=== PATIENT | female | born 1985 | race Caucasian/White ===

== ENCOUNTER 2016-06-11 22:49 | Emergency (ER) | payer MEDICARE, OTHER ==
[~2016-06-11] VITALS: Ht 45.7 cm; Wt 147.3 kg
[~2016-06-11 22:49] MED LIST: ADIPEX-P37.5 MG PO; BENADRYL50 MG PO; CELEXA40 MG PO; DEPO-PROVER150 MG/M1 IM; FLEXERIL 1010 MG/TAB PO; MACROBID100 MG PO; NEURONTIN600 MG/TAB PO; PERCOCET 325 MG1 TA2 PO; PERCOCET 325 MG1 TAB PO; ROXICODONE 55 MG/TAB PO; TOPAMAX50 MG PO
[2016-06-11 22:59] VITALS: TEMP 98.9
[2016-06-11] MEDS ORDERED: AMITRIPTYLINE H10 M1 PO (23:05)
[2016-06-12 01:50] VITALS: BP 141/80; PULSE 90
[2016-06-12] MEDS ORDERED: ROXICODONE 55 MG/TAB PO (10:14)
[2016-06-12] MEDS ORDERED: MOTRIN 800800 MG/TAB PO (12:46)
== END 2016-06-12 01:50 | disposition home or self-care (01) ==
LOC: COL.ER 22:49
DX: M25.561 Pain in right knee (principal)
CPT/HCPCS: J1170; J1885; J2405; J2550

== ENCOUNTER 2016-06-12 10:05 | Emergency (ER) | payer MEDICARE, OTHER ==
[~2016-06-12] VITALS: Ht 170.2 cm; Wt 147.3 kg
[~2016-06-12 10:05] MED LIST changes: +AMITRIPTYLINE H10 M1 PO
[2016-06-12 10:07] VITALS: BP 147/89; TEMP 98.9
[2016-06-12] MEDS ORDERED: ROXICODONE 55 MG/TAB PO (10:14)
[2016-06-12 11:28] LABS: SYNOVIAL FLUID APPEARANCE HAZY; SYNOVIAL FLUID COLOR OTHER
[2016-06-12 11:31] LABS: SYNOVIAL FL. MONONUCLEAR 8.3 % (0-75); SYNOVIAL FL. POLYMORPHONUCLEAR 91.7 % (0-25)
[2016-06-12 11:41] LABS: SYNOVIAL FLUID WBC 37600 /mm3 (200-600)
[2016-06-12 11:42] LABS: ADJUSTED CALCIUM 9.4 mg/dL (8.4-10.2); ALBUMIN 4.3 gm/dL (3.5-5.0); C-REACTIVE PROTEIN 3.8 mg/dL (0.0-0.9); CALCIUM 9.6 mg/dL (8.4-10.2); CREATININE, serum 0.66 mg/dL (0.52-1.25); POTASSIUM 3.3 mmol/L (3.4-5.0); TOTAL PROTEIN 7.9 gm/dL (6.4-8.2)
[2016-06-12 11:45] LABS: BASO % 0.2 % (0.0-2.0); EOS # 0.1 (0.0-0.7); EOS % 1.1 % (0-4.0); GRAN # 7.9 (1.4-6.5); GRAN % 67.9 % (42.2-75.2); HEMATOCRIT 38.3 % (37.0-47.0); LYMPH # 2.7 (1.2-3.4); LYMPH % 22.9 % (20.0-51.0); MEAN CELL VOLUME 81 fl (80.0-100.0); MEAN CORPUSCULAR HEMOGLOBIN 28 pg (27.0-31.0); MEAN CORPUSCULAR HGB CONC 34 g/dl (33.0-37.0); MEAN PLATELET VOLUME 10.1 fl (7.4-10.4); MONO # 0.9 (0.1-0.6); MONO % 7.5 % (1.7-9.3); PLATELET COUNT 209 K/mm3 (130-400); RED BLOOD COUNT 4.72 M/mm3 (4.10-5.30); REDCELL DISTRIBUTION WIDTH-CV 12.6 % (11.5-14.5); WHITE BLOOD COUNT 11.7 K/mm3 (4.8-10.8)
[2016-06-12] MEDS ORDERED: MOTRIN 800800 MG/TAB PO (12:46)
[2016-06-12 13:00] VITALS: PULSE 103
[2016-06-15 08:41] LABS: SYN APPEARANCE Cloudy (()); SYN COLOR Amber (())
== END 2016-06-12 13:01 | disposition home or self-care (01) ==
LOC: COL.ER 10:05
PROVIDERS: Emergency Medicine
DX: M13.861 Other specified arthritis, right knee (principal)
CPT/HCPCS: J1170; J1885; J2405

== ENCOUNTER 2016-10-23 22:14 | Emergency (ER) | payer MEDICARE, OTHER ==
[~2016-10-23] VITALS: Ht 170.2 cm; Wt 145.5 kg
[~2016-10-23 22:14] MED LIST changes: +MOTRIN 800800 MG/TAB PO
[2016-10-23 22:19] VITALS: TEMP 98
[2016-10-23] MEDS ORDERED: HCTZ 25MG TAB25 MG PO (22:22)
[2016-10-23] MEDS ORDERED: PREDNISONE20 MG PO (22:31)
[2016-10-23] MEDS ORDERED: DILAUDID 4MG TAB4 MG PO (23:26)
[2016-10-23 23:45] LABS: BASO # 0.1 (0.0-0.2); BASO % 0.3 % (0.0-2.0); EOS # 0.2 (0.0-0.7); EOS % 1.6 % (0-4.0); GRAN # 11.9 (1.4-6.5); GRAN % 80.8 % (42.2-75.2); HEMOGLOBIN 13.1 g/dl (12.5-16.0); LYMPH # 1.6 (1.2-3.4); LYMPH % 10.5 % (20.0-51.0); MEAN CELL VOLUME 81 fl (80.0-100.0); MEAN CORPUSCULAR HEMOGLOBIN 27 pg (27.0-31.0); MEAN CORPUSCULAR HGB CONC 34 g/dl (33.0-37.0); MEAN PLATELET VOLUME 10.2 fl (7.4-10.4); MONO # 0.8 (0.1-0.6); MONO % 5.1 % (1.7-9.3); PLATELET COUNT 222 K/mm3 (130-400); RED BLOOD COUNT 4.84 M/mm3 (4.10-5.30); REDCELL DISTRIBUTION WIDTH-CV 13.4 % (11.5-14.5); WHITE BLOOD COUNT 14.8 K/mm3 (4.8-10.8)
[2016-10-24 00:36] LABS: ERYTHROCYTE SEDIMENTATION RATE 46 mm/hr (0-20)
[2016-10-24 01:36] VITALS: BP 110/64; PULSE 108
== END 2016-10-24 01:37 | disposition home or self-care (01) ==
LOC: COL.ER 22:14
PROVIDERS: Emergency Medicine
DX: M23.91 Unspecified internal derangement of right knee (principal); Z48.01 Encounter for change or removal of surgical wound dressing; Z79.891 Long term (current) use of opiate analgesic
CPT/HCPCS: J1100; J1170; J1885; J2405; J7030

== ENCOUNTER → 2016-12-02 | Outpatient (CLI) | payer MEDICARE ==
[~2016-12-02] MED LIST changes: +DILAUDID 4MG TAB4 MG PO; +HCTZ 25MG TAB25 MG PO; +PREDNISONE20 MG PO
[2016-12-02 18:24] LABS: ADJUSTED CALCIUM 9.3 mg/dL (8.4-10.2); BILIRUBIN,TOTAL 0.2 mg/dL (0.0-1.0); CALCIUM 9.3 mg/dL (8.4-10.2); CREATININE, serum 0.62 mg/dL (0.52-1.25); POTASSIUM 3.4 mmol/L (3.4-5.0); TOTAL PROTEIN 7.4 gm/dL (6.4-8.2)
== END ==
LOC: ZCOL.LAB 17:28
PROVIDERS: Family Medicine
DX: T14.90 Injury, unspecified (principal); B99.9 Unspecified infectious disease

== ENCOUNTER → 2016-12-22 | Outpatient (CLI) | payer MEDICARE, OTHER | LOC: COL.RAD 08:42 | DX: M25.461 Effusion, right knee (principal); M17.11 Unilateral primary osteoarthritis, right knee; M94.8X6 Other specified disorders of cartilage, lower leg ==

== ENCOUNTER 2017-01-28 07:28 | Emergency (ER) | payer MEDICARE ==
[~2017-01-28] VITALS: Ht 170.2 cm; Wt 146.4 kg
[2017-01-28 07:30] VITALS: TEMP 99.5
[2017-01-28] MEDS ORDERED: ZANAFLEX 4MG TAB4 MG PO (07:50)
[2017-01-28] MEDS ORDERED: ANTIVERT 25MG25 MG PO (07:51)
[2017-01-28] MEDS ORDERED: DAZIDOX10 MG PO (07:51)
[2017-01-28] MEDS ORDERED: ZOFRAN ODT4 MG PO (07:52)
[2017-01-28] MEDS ORDERED: SINGULAIR 110 MG/TAB PO (07:52)
[2017-01-28 08:59] LABS: PH 5 (5-8); SQUAMOUS EPITHELIAL 0-2 /hpf; URINE APPEARANCE Hazy; URINE BACTERIA Rare /hpf; URINE BILIRUBIN Negative (NEGATIVE); URINE BLOOD Negative (NEGATIVE); URINE COLOR Yellow; URINE GLUCOSE Negative (NEGATIVE); URINE KETONE Negative (NEGATIVE); URINE RBC 0-2 /hpf
[2017-01-28 09:03] LABS: MEAN CELL VOLUME 77 fl (80.0-100.0); MEAN CORPUSCULAR HEMOGLOBIN 26 pg (27.0-31.0); MEAN CORPUSCULAR HGB CONC 33 g/dl (33.0-37.0); MEAN PLATELET VOLUME 10.9 fl (7.4-10.4); PLATELET COUNT 128 K/mm3 (130-400); RED BLOOD COUNT 4.65 M/mm3 (4.10-5.30); WHITE BLOOD COUNT 6.4 K/mm3 (4.8-10.8)
[2017-01-28 09:05] LABS: ADD PATHOLOGY DIFF REVIEW NO
[2017-01-28 09:08] LABS: ADJUSTED CALCIUM 8.9 mg/dL (8.4-10.2); BILIRUBIN,TOTAL 0.9 mg/dL (0.0-1.0); CALCIUM 8.9 mg/dL (8.4-10.2); CREATININE, serum 0.62 mg/dL (0.52-1.25); POTASSIUM 3.3 mmol/L (3.4-5.0); TOTAL PROTEIN 7.1 gm/dL (6.4-8.2)
[2017-01-28 10:10] LABS: BAND 15 % (0-10); NEUTROPHILS 31 % (42.0-75.2); TOTAL CELLS COUNTED 100
[2017-01-28 10:11] LABS: PLATELET ESTIMATE DECREASED (NORMAL)
[2017-01-28 10:12] LABS: MICROCYTOSIS 1+
[2017-01-28] MEDS ORDERED: PHENERGAN 25 TA25 MG PO (10:18)
[2017-01-28 10:35] VITALS: BP 125/79; PULSE 95
== END 2017-01-28 10:35 | disposition home or self-care (01) ==
LOC: COL.ER 07:28
PROVIDERS: Emergency Medicine
DX: R42 Dizziness and giddiness (principal); R51 Headache; I10 Essential (primary) hypertension; G89.29 Other chronic pain; M54.9 Dorsalgia, unspecified; Z87.891 Personal history of nicotine dependence; Z98.890 Other specified postprocedural states
CPT/HCPCS: J1170; J2405; J3010; J7030

== ENCOUNTER → 2017-02-04 | Outpatient (CLI) | payer MEDICARE ==
[~2017-02-04] MED LIST changes: +ANTIVERT 25MG25 MG PO; +DAZIDOX10 MG PO; +PHENERGAN 25 TA25 MG PO; +SINGULAIR 110 MG/TAB PO; +ZANAFLEX 4MG TAB4 MG PO; +ZOFRAN ODT4 MG PO
== END ==
LOC: COL.RAD 10:14
DX: R51 Headache (principal); R42 Dizziness and giddiness; R07.9 Chest pain, unspecified
CPT/HCPCS: A9585

== ENCOUNTER → 2017-02-08 | Outpatient (CLI) | payer MEDICARE | LOC: COL.RAD 09:45 | DX: K80.20 Calculus of gallbladder without cholecystitis without obstruction (principal); K76.0 Fatty (change of) liver, not elsewhere classified; R16.0 Hepatomegaly, not elsewhere classified ==

== ENCOUNTER 2017-02-25 09:35 | Day surgery (SDC) | payer MEDICARE ==
[~2017-02-25] VITALS: Ht 171.4 cm; Wt 147.4 kg
[2017-02-25 10:41] VITALS: BP 131/75; PULSE 110; TEMP 97.6
[2017-02-25] MEDS ORDERED: WELLBUTRIN XL150 MG PO (11:10)
[2017-02-25] MEDS ORDERED: ZANTAC 150MG T150 MG PO (11:10)
[2017-02-25] MEDS ORDERED: ATARAX 25MG25 MG/TAB PO (11:11)
[2017-02-25 14:35] VITALS: BP 120/72; PULSE 88
[2017-02-25 14:50] VITALS: BP 110/73; PULSE 84
[2017-02-25 15:05] VITALS: BP 99/59; PULSE 84
[2017-02-25 15:20] VITALS: BP 116/73; PULSE 90
[2017-02-25 15:35] VITALS: BP 124/68; PULSE 82; TEMP 97.5
== END 2017-02-25 16:07 | disposition home or self-care (01) ==
LOC: SDCO 09:35
DX: K80.10 Calculus of gallbladder with chronic cholecystitis without obstruction (principal); G90.522 Complex regional pain syndrome I of left lower limb; E66.01 Morbid (severe) obesity due to excess calories; Z68.43 Body mass index [BMI] 50.0-59.9, adult; I10 Essential (primary) hypertension; Z87.891 Personal history of nicotine dependence; G89.29 Other chronic pain; M54.9 Dorsalgia, unspecified; R20.2 Paresthesia of skin; F32.9 Major depressive disorder, single episode, unspecified; F41.9 Anxiety disorder, unspecified
CPT/HCPCS: J1170; J2765; J7120

== ENCOUNTER 2017-05-03 14:45 | Outpatient (RCR) | payer MEDICARE ==
[~2017-05-03 14:45] MED LIST changes: +ATARAX 25MG25 MG/TAB PO; +WELLBUTRIN XL150 MG PO; +ZANTAC 150MG T150 MG PO
== END 2017-05-03 15:33 | disposition home or self-care (01) ==
LOC: WSPT 14:45
DX: M25.561 Pain in right knee (principal)
CPT/HCPCS: G8978-GP; G8979-GP

== ENCOUNTER 2017-05-05 09:20 | Day surgery (SDC) | payer MEDICARE, OTHER ==
[~2017-05-05] VITALS: Ht 171.4 cm; Wt 147.8 kg
[2017-05-05 09:53] VITALS: BP 144/92; PULSE 91; TEMP 98.1
[2017-05-05] MEDS ORDERED: TOPAMAX50 MG PO (10:41)
[2017-05-05] MEDS ORDERED: ROXICODONE 55 MG/TAB PO ×2 (10:41→15:14)
[2017-05-05] MEDS ORDERED: CELEXA40 MG PO (10:42)
[2017-05-05] MEDS ORDERED: NEURONTIN600 MG/TAB PO (10:45)
[2017-05-05] MEDS ORDERED: AMITRIPTYLINE H25 M1 PO (10:45)
[2017-05-05 14:06] VITALS: TEMP 97.4
[2017-05-05 14:40] VITALS: BP 96/53; PULSE 97
[2017-05-05 14:55] VITALS: BP 102/58; PULSE 82
[2017-05-05 15:10] VITALS: BP 110/59; PULSE 87
[2017-05-05] MEDS ORDERED: PHENERGAN 25 TA25 MG PO (15:14)
[2017-05-05] MEDS ORDERED: CEPHALEXIN500 M1 PO (15:15)
[2017-05-05 15:25] VITALS: BP 103/54; PULSE 81
== END 2017-05-05 15:41 | disposition home or self-care (01) ==
LOC: SDCO 09:20
DX: M65.861 Other synovitis and tenosynovitis, right lower leg (principal); M17.11 Unilateral primary osteoarthritis, right knee; M94.261 Chondromalacia, right knee; E66.01 Morbid (severe) obesity due to excess calories; Z88.5 Allergy status to narcotic agent; Z88.2 Allergy status to sulfonamides; Z91.018 Allergy to other foods; F32.9 Major depressive disorder, single episode, unspecified; M25.461 Effusion, right knee; Z68.42 Body mass index [BMI] 45.0-49.9, adult
CPT/HCPCS: J0171; J0690; J1100; J1170; J1885; J2175; J2405; J2704; J2765; J3010; J7120

== ENCOUNTER → 2017-08-11 | Outpatient (CLI) | payer MEDICARE ==
[~2017-08-11] MED LIST changes: +AMITRIPTYLINE H25 M1 PO; +CEPHALEXIN500 M1 PO
== END ==
LOC: MC.RAD 08:09
DX: N63.24 Unspecified lump in the left breast, lower inner quadrant (principal)

== ENCOUNTER → 2017-10-17 | Outpatient (CLI) | payer MEDICARE ==
[~2017-10-17] VITALS: Ht 172.7 cm; Wt 60.5 kg
[~2017-10-17] MED LIST changes: +MEDROL 4MG DOSPA4 MG PO; +PRILOTC
[2017-10-17 12:23] VITALS: BP 131/60; PULSE 89
[2017-10-17 13:05] VITALS: BP 126/79; PULSE 90
[2017-10-17 13:15] VITALS: BP 130/75; PULSE 80
[2017-10-17 13:30] VITALS: BP 117/73; PULSE 90
== END ==
LOC: COL.RAD 11:38
DX: M51.26 Other intervertebral disc displacement, lumbar region (principal); Z98.890 Other specified postprocedural states
CPT/HCPCS: A9585; G9654; J2704; J3010; J7120

== ENCOUNTER 2017-12-16 21:33 | Observation (INO) | payer MEDICARE ==
[~2017-12-16] VITALS: Ht 170.2 cm; Wt 127.4 kg
[2017-12-16 22:00] LABS: BASO % 0.1 % (0.0-2.0); EOS # 0.2 (0.0-0.7); EOS % 1.8 % (0-4.0); GRAN # 6.1 (1.4-6.5); GRAN % 58.6 % (42.2-75.2); HEMATOCRIT 38.3 % (37.0-47.0); HEMOGLOBIN 13.1 g/dl (12.5-16.0); LYMPH # 3.4 (1.2-3.4); LYMPH % 32.1 % (20.0-51.0); MEAN CELL VOLUME 82 fl (80.0-100.0); MEAN CORPUSCULAR HEMOGLOBIN 28 pg (27.0-31.0); MEAN CORPUSCULAR HGB CONC 34 g/dl (33.0-37.0); MEAN PLATELET VOLUME 10.6 fl (7.4-10.4); MONO # 0.7 (0.1-0.6); PLATELET COUNT 200 K/mm3 (130-400); RED BLOOD COUNT 4.68 M/mm3 (4.10-5.30); REDCELL DISTRIBUTION WIDTH-CV 12.6 % (11.5-14.5)
[2017-12-16 22:05] LABS: PROTHROMBIN TIME 11.4 SECONDS (9.7-12.8)
[2017-12-16] MEDS ORDERED: AMITRIPTYLINE H25 M1 PO (22:05)
[2017-12-16] MEDS ORDERED: CELEXA40 MG PO (22:06)
[2017-12-16 22:07] LABS: PARTIAL THROMBOPLASTIN TIME 40.6 SECONDS (26.0-37.0)
[2017-12-16 22:11] LABS: ALANINE AMINOTRANSFERASE 61 U/L (9-52); ALBUMIN 4.3 gm/dL (3.5-5.0); ALKALINE PHOSPHATASE 57 U/L (50-136); ANION GAP 13 mmol/L (7-16); AST,SGOT 128 U/L (15-37); BILIRUBIN,TOTAL 0.4 mg/dL (0.0-1.0); BLOOD UREA NITROGEN 8 mg/dL (7-17); CALCIUM 9.2 mg/dL (8.4-10.2); CARBON DIOXIDE 25 mmol/L (22-30); CHLORIDE 100 mmol/L (98-107); CREATININE, serum 0.68 mg/dL (0.52-1.25); GLUCOSE 126 mg/dL (74-106); POTASSIUM 3.1 mmol/L (3.4-5.0); SODIUM 138 mmol/L (137-145); TOTAL PROTEIN 7.6 gm/dL (6.4-8.2)
[2017-12-16 22:22] LABS: TROPONIN-I < 0.012 ng/mL (0.000-0.034)
[2017-12-16] MEDS ORDERED: BUSPIRONE HCL7.5 MG PO (22:36)
[2017-12-16] MEDS ORDERED: CALCIUM 600/VIT1 CAP PO (22:36)
[2017-12-16] MEDS ORDERED: BIOTIN10000 MC1 PO (22:37)
[2017-12-16] MEDS ORDERED: ZANTAC 150MG T150 MG PO (22:38)
[2017-12-16] MEDS ORDERED: PRILOTC PO (22:40)
[2017-12-16] MEDS ORDERED: HCTZ 25MG TAB25 MG PO (22:41)
[2017-12-16] MEDS ORDERED: OXYCONTIN 10MG10 MG PO (22:46)
[2017-12-16] MEDS ORDERED: B-12 500 MCG PO (22:47)
[2017-12-16] MEDS ORDERED: LYSINE1000 MG PO (22:47)
[2017-12-17 00:50] VITALS: BP 127/76; PULSE 86; TEMP 98.6
[2017-12-17 02:00] LABS: COLLECTION METHOD CLEAN CATCH
[2017-12-17 02:06] LABS: PH 6 (5-8); SQUAMOUS EPITHELIAL 0-2 /hpf; URINE APPEARANCE Clear; URINE BACTERIA None Seen /hpf; URINE BILIRUBIN Negative (NEGATIVE); URINE BLOOD Negative (NEGATIVE); URINE COLOR Yellow; URINE GLUCOSE Negative (NEGATIVE); URINE KETONE Negative (NEGATIVE); URINE LEUKOCYTE ESTERASE Negative (NEGATIVE); URINE NITRATE Negative (NEGATIVE); URINE PROTEIN(semi-quant) Negative (NEGATIVE); URINE RBC None Seen /hpf; URINE UROBILINOGEN Negative (NEGATIVE)
[2017-12-17 04:51] VITALS: BP 110/62; PULSE 83; TEMP 98.5
[2017-12-17 08:39] VITALS: BP 109/63; PULSE 79; TEMP 98.1
[2017-12-17 09:08] LABS: BASO % 0.1 % (0.0-2.0); EOS # 0.2 (0.0-0.7); EOS % 2.2 % (0-4.0); GRAN # 4.1 (1.4-6.5); GRAN % 48.9 % (42.2-75.2); LYMPH # 3.5 (1.2-3.4); LYMPH % 41.2 % (20.0-51.0); MEAN CELL VOLUME 83 fl (80.0-100.0); MEAN CORPUSCULAR HEMOGLOBIN 28 pg (27.0-31.0); MEAN CORPUSCULAR HGB CONC 34 g/dl (33.0-37.0); MEAN PLATELET VOLUME 10.9 fl (7.4-10.4); MONO # 0.6 (0.1-0.6); MONO % 7.4 % (1.7-9.3); PLATELET COUNT 188 K/mm3 (130-400); RED BLOOD COUNT 4.26 M/mm3 (4.10-5.30); REDCELL DISTRIBUTION WIDTH-CV 12.8 % (11.5-14.5)
[2017-12-17 09:16] LABS: HEMATOCRIT 35.3 % (37.0-47.0)
[2017-12-17 09:27] LABS: ALANINE AMINOTRANSFERASE 59 U/L (9-52); ALBUMIN 3.8 gm/dL (3.5-5.0); ALKALINE PHOSPHATASE 46 U/L (50-136); ANION GAP 11 mmol/L (7-16); AST,SGOT 69 U/L (15-37); BILIRUBIN,TOTAL 0.5 mg/dL (0.0-1.0); BLOOD UREA NITROGEN 6 mg/dL (7-17); CALCIUM 8.9 mg/dL (8.4-10.2); CARBON DIOXIDE 26 mmol/L (22-30); CHLORIDE 103 mmol/L (98-107); CREATININE, serum 0.66 mg/dL (0.52-1.25); GLUCOSE 73 mg/dL (74-106); POTASSIUM 3.6 mmol/L (3.4-5.0); SODIUM 139 mmol/L (137-145)
[2017-12-17 09:49] LABS: TROPONIN-I < 0.012 ng/mL (0.000-0.034)
[2017-12-17 10:33] VITALS: BP 109/63; PULSE 79
== END 2017-12-17 13:00 | disposition home or self-care (01) ==
LOC: COL.ER 21:33 → SURG 23:00
PROVIDERS: Emergency Medicine; Family Medicine; Nurse Practitioner
DX: G89.4 Chronic pain syndrome (principal); R10.13 Epigastric pain; F32.9 Major depressive disorder, single episode, unspecified; F10.20 Alcohol dependence, uncomplicated; I10 Essential (primary) hypertension; E87.6 Hypokalemia; R07.89 Other chest pain; M25.512 Pain in left shoulder; M79.632 Pain in left forearm; M79.642 Pain in left hand; E66.9 Obesity, unspecified; K21.9 Gastro-esophageal reflux disease without esophagitis; K76.0 Fatty (change of) liver, not elsewhere classified; Z90.49 Acquired absence of other specified parts of digestive tract; Z87.891 Personal history of nicotine dependence; Z88.1 Allergy status to other antibiotic agents; Z88.2 Allergy status to sulfonamides; Z91.018 Allergy to other foods; Z80.3 Family history of malignant neoplasm of breast; Z82.3 Family history of stroke; Z80.0 Family history of malignant neoplasm of digestive organs; Z83.3 Family history of diabetes mellitus; Z82.49 Family history of ischemic heart disease and other diseases of the circulatory system
CPT/HCPCS: G0378; J1170; J2060; J2405; J7120; Q9967

== ENCOUNTER 2018-04-08 15:28 | Emergency (ER) | payer MEDICARE ==
[~2018-04-08] VITALS: Ht 170.2 cm; Wt 136.4 kg
[~2018-04-08 15:28] MED LIST changes: +B-12 500 MCG PO; +BIOTIN10000 MC1 PO; +BUSPIRONE HCL7.5 MG PO; +CALCIUM 600/VIT1 CAP PO; +LYSINE1000 MG PO; +OXYCONTIN 10MG10 MG PO; +PRILOTC PO
[2018-04-08 15:30] VITALS: TEMP 97.7
[2018-04-08 16:23] LABS: BASO % 0.1 % (0.0-2.0); EOS # 0.4 (0.0-0.7); EOS % 4.5 % (0-4.0); GRAN # 4.8 (1.4-6.5); GRAN % 53.4 % (42.2-75.2); HEMATOCRIT 37.7 % (37.0-47.0); HEMOGLOBIN 12.8 g/dl (12.5-16.0); LYMPH # 3.2 (1.2-3.4); LYMPH % 35.3 % (20.0-51.0); MEAN CELL VOLUME 85 fl (80.0-100.0); MEAN CORPUSCULAR HEMOGLOBIN 29 pg (27.0-31.0); MEAN CORPUSCULAR HGB CONC 34 g/dl (33.0-37.0); MONO # 0.6 (0.1-0.6); MONO % 6.5 % (1.7-9.3); PLATELET COUNT 185 K/mm3 (130-400); RED BLOOD COUNT 4.46 M/mm3 (4.10-5.30); REDCELL DISTRIBUTION WIDTH-CV 12.5 % (11.5-14.5)
[2018-04-08 16:34] LABS: BILIRUBIN,TOTAL 0.4 mg/dL (0.0-1.0); CREATININE, serum 0.66 mg/dL (0.52-1.25); POTASSIUM 4.1 mmol/L (3.4-5.0); TOTAL PROTEIN 7.2 gm/dL (6.4-8.2)
[2018-04-08 17:15] LABS: COLLECTION METHOD CLEAN CATCH
[2018-04-08] MEDS ORDERED: CYMBALTA 60MG60 MG PO (17:41)
[2018-04-08] MEDS ORDERED: NATURAL E400 IU PO (17:52)
[2018-04-08] MEDS ORDERED: TURMERIC500 MG PO (17:52)
[2018-04-08] MEDS ORDERED: FLAXSEED OIL1000 MG PO (17:53)
[2018-04-08] MEDS ORDERED: MASON NATURAL500 MG PO (17:53)
[2018-04-08 17:56] LABS: MUCOUS Present /lpf; PH 5 (5-8); SQUAMOUS EPITHELIAL 0-2 /hpf; URINE APPEARANCE Clear; URINE BACTERIA None Seen /hpf; URINE BILIRUBIN Negative (NEGATIVE); URINE BLOOD Negative (NEGATIVE); URINE COLOR Yellow; URINE GLUCOSE Negative (NEGATIVE); URINE KETONE Negative (NEGATIVE); URINE LEUKOCYTE ESTERASE Trace (NEGATIVE); URINE NITRATE Negative (NEGATIVE); URINE PROTEIN(semi-quant) Negative (NEGATIVE); URINE RBC None Seen /hpf; URINE UROBILINOGEN Negative (NEGATIVE); URINE WBC 0-2 /hpf
[2018-04-08 18:12] VITALS: BP 112/72; PULSE 97
== END 2018-04-08 18:12 | disposition home or self-care (01) ==
LOC: COL.ER 15:28
PROVIDERS: Emergency Medicine
DX: R10.30 Lower abdominal pain, unspecified (principal); M54.9 Dorsalgia, unspecified; K21.9 Gastro-esophageal reflux disease without esophagitis; Z90.49 Acquired absence of other specified parts of digestive tract; Z96.9 Presence of functional implant, unspecified; Z32.02 Encounter for pregnancy test, result negative; Z87.891 Personal history of nicotine dependence
CPT/HCPCS: C9113; J1630; J2270; J2550; J7030; Q9967

== ENCOUNTER 2018-05-20 19:16 | Emergency (ER) | payer MEDICARE ==
[~2018-05-20] VITALS: Ht 170.2 cm; Wt 140.9 kg
[~2018-05-20 19:16] MED LIST changes: +CYMBALTA 60MG60 MG PO; +FLAXSEED OIL1000 MG PO; +MASON NATURAL500 MG PO; +NATURAL E400 IU PO; +TURMERIC500 MG PO
[2018-05-20 19:19] VITALS: BP 156/95; TEMP 98.5
[2018-05-20 20:55] VITALS: PULSE 124
== END 2018-05-20 20:55 | disposition home or self-care (01) ==
LOC: COL.ER 19:16
DX: G90.50 Complex regional pain syndrome I, unspecified (principal); M54.5 Low back pain; F32.9 Major depressive disorder, single episode, unspecified; F41.9 Anxiety disorder, unspecified
CPT/HCPCS: J1170

== ENCOUNTER → 2018-07-03 | Outpatient (CLI) | payer MEDICARE | LOC: MHCPAIN 10:17 | DX: G89.29 Other chronic pain (principal); M47.817 Spondylosis without myelopathy or radiculopathy, lumbosacral region; M54.16 Radiculopathy, lumbar region; M53.3 Sacrococcygeal disorders, not elsewhere classified; M96.1 Postlaminectomy syndrome, not elsewhere classified ==

== ENCOUNTER 2018-07-07 05:58 | Emergency (ER) | payer MEDICARE ==
[~2018-07-07] VITALS: Ht 170.2 cm; Wt 140.0 kg
[2018-07-07 05:58] VITALS: BP 138/87; TEMP 97
[2018-07-07 10:30] VITALS: PULSE 103
== END 2018-07-07 10:30 | disposition home or self-care (01) ==
LOC: COL.ER 05:58
DX: M54.5 Low back pain (principal); G89.29 Other chronic pain; Z79.899 Other long term (current) drug therapy

== ENCOUNTER → 2018-08-03 | Outpatient (CLI) | payer MEDICARE | LOC: MHCPAIN 08:02 | DX: M47.817 Spondylosis without myelopathy or radiculopathy, lumbosacral region (principal); M54.16 Radiculopathy, lumbar region; M53.3 Sacrococcygeal disorders, not elsewhere classified; G89.29 Other chronic pain | CPT/HCPCS: G0463 ==

== ENCOUNTER 2018-08-13 18:36 | Emergency (ER) | payer MEDICARE | END 2018-08-13 18:54 | disposition left against medical advice (07) | LOC: COL.ER 18:36 | DX: Z72.9 Problem related to lifestyle, unspecified (principal) ==

== ENCOUNTER 2018-08-28 11:48 | Emergency (ER) | payer MEDICARE ==
[~2018-08-28] VITALS: Ht 170.2 cm; Wt 143.2 kg
[2018-08-28 11:55] VITALS: TEMP 98.5
[2018-08-28] MEDS ORDERED: CYMBALTA 60MG60 MG PO (13:16)
[2018-08-28] MEDS ORDERED: NEURONTIN600 MG/TAB PO (13:20)
[2018-08-28] MEDS ORDERED: ATIVAN 0.50.5 MG/TAB PO (13:21)
[2018-08-28] MEDS ORDERED: BENADRYL25 M2 PO (13:21)
[2018-08-28] MEDS ORDERED: VESICARE 5MG5 MG PO (13:22)
[2018-08-28 16:17] VITALS: BP 149/97; PULSE 112
== END 2018-08-28 16:25 | disposition home or self-care (01) ==
LOC: COL.ER 11:48
DX: G90.50 Complex regional pain syndrome I, unspecified (principal); M54.5 Low back pain; I10 Essential (primary) hypertension; F41.9 Anxiety disorder, unspecified; F32.9 Major depressive disorder, single episode, unspecified; Z98.890 Other specified postprocedural states; Z87.891 Personal history of nicotine dependence
CPT/HCPCS: J1170; J2060

== ENCOUNTER 2018-12-04 14:51 | Emergency (ER) | payer MEDICARE ==
[~2018-12-04] VITALS: Ht 170.2 cm; Wt 150.0 kg
[~2018-12-04 14:51] MED LIST changes: +ATIVAN 0.50.5 MG/TAB PO; +BENADRYL25 M2 PO; +VESICARE 5MG5 MG PO
[2018-12-04 15:10] VITALS: BP 136/93; TEMP 97.8
[2018-12-04 16:06] LABS: COLLECTION METHOD CLEAN CATCH
[2018-12-04 16:14] LABS: MUCOUS Present /lpf; PH 5 (5-8); SQUAMOUS EPITHELIAL 0-2 /hpf; URINE APPEARANCE Clear; URINE BACTERIA Rare /hpf; URINE BILIRUBIN Negative (NEGATIVE); URINE BLOOD Negative (NEGATIVE); URINE COLOR Yellow; URINE GLUCOSE Negative (NEGATIVE); URINE KETONE Trace (NEGATIVE); URINE LEUKOCYTE ESTERASE Negative (NEGATIVE); URINE NITRATE Negative (NEGATIVE); URINE PROTEIN(semi-quant) Negative (NEGATIVE); URINE RBC 0-2 /hpf
[2018-12-04 17:18] VITALS: PULSE 100
== END 2018-12-04 17:18 | disposition home or self-care (01) ==
LOC: COL.ER 14:51
PROVIDERS: Emergency Medicine
DX: M54.5 Low back pain (principal); G89.29 Other chronic pain; E66.9 Obesity, unspecified
CPT/HCPCS: J1170; J1885; J2360

== ENCOUNTER 2019-01-06 21:50 | Emergency (ER) | payer MEDICARE ==
[~2019-01-06] VITALS: Ht 170.2 cm; Wt 145.5 kg
[2019-01-06 21:55] VITALS: TEMP 97.8
[2019-01-06 22:56] LABS: EOS # 0.2 (0.0-0.7); EOS % 1.7 % (0-4.0); GRAN # 4.9 (1.4-6.5); GRAN % 54.3 % (42.2-75.2); HEMATOCRIT 40.6 % (37.0-47.0); HEMOGLOBIN 13.4 g/dl (12.5-16.0); LYMPH # 3.3 (1.2-3.4); MEAN CELL VOLUME 82 fl (80.0-100.0); MEAN CORPUSCULAR HEMOGLOBIN 27 pg (27.0-31.0); MEAN CORPUSCULAR HGB CONC 33 g/dl (33.0-37.0); MEAN PLATELET VOLUME 9.9 fl (7.4-10.4); MONO # 0.6 (0.1-0.6); MONO % 6.7 % (1.7-9.3); PLATELET COUNT 184 K/mm3 (130-400); RED BLOOD COUNT 4.97 M/mm3 (4.10-5.30); REDCELL DISTRIBUTION WIDTH-CV 12.9 % (11.5-14.5)
[2019-01-06 23:08] LABS: CALCIUM 8.8 mg/dL (8.4-10.2); CREATININE, serum 0.57 (0.52-1.25); POTASSIUM 3.7 mmol/L (3.4-5.0)
[2019-01-07 00:25] LABS: COLLECTION METHOD CLEAN CATCH
[2019-01-07 00:36] LABS: MUCOUS Present /lpf; PH 5 (5-8); URINE APPEARANCE Hazy; URINE BACTERIA Moderate /hpf; URINE BILIRUBIN Negative (NEGATIVE); URINE BLOOD Negative (NEGATIVE); URINE COLOR Yellow; URINE GLUCOSE Negative (NEGATIVE); URINE KETONE Negative (NEGATIVE); URINE LEUKOCYTE ESTERASE Negative (NEGATIVE); URINE NITRATE Negative (NEGATIVE); URINE PROTEIN(semi-quant) 1+ (NEGATIVE); URINE RBC 0-2 /hpf; URINE UROBILINOGEN Negative (NEGATIVE)
[2019-01-07] MEDS ORDERED: MACROBID 1100 MG/CAP PO (00:51)
[2019-01-07 01:13] VITALS: BP 128/81; PULSE 110
== END 2019-01-07 01:13 | disposition home or self-care (01) ==
LOC: COL.ER 21:50
PROVIDERS: Physician Assistant
DX: G90.50 Complex regional pain syndrome I, unspecified (principal); N39.0 Urinary tract infection, site not specified
CPT/HCPCS: J1170; J2405; J7030

== ENCOUNTER 2019-01-09 14:51 | Emergency (ER) | payer MEDICARE ==
[~2019-01-09] VITALS: Ht 170.2 cm; Wt 145.5 kg
[~2019-01-09 14:51] MED LIST changes: +MACROBID 1100 MG/CAP PO
[2019-01-09 15:10] VITALS: TEMP 98
[2019-01-09 18:24] VITALS: BP 120/68; PULSE 82
== END 2019-01-09 18:26 | disposition home or self-care (01) ==
LOC: COL.ER 14:51
DX: M54.5 Low back pain (principal); G89.18 Other acute postprocedural pain; M79.605 Pain in left leg; M79.604 Pain in right leg; E66.9 Obesity, unspecified
CPT/HCPCS: J1170

== ENCOUNTER 2019-04-26 16:11 | Emergency (ER) | payer MEDICARE ==
[~2019-04-26] VITALS: Ht 170.2 cm; Wt 146.8 kg
[2019-04-26 16:16] VITALS: BP 134/89; TEMP 97.6
[2019-04-26 17:19] LABS: BASO % 0.2 % (0.0-2.0); EOS # 0.1 (0.0-0.7); GRAN # 7.3 (1.4-6.5); HEMATOCRIT 40.8 % (37.0-47.0); HEMOGLOBIN 13.6 g/dl (12.5-16.0); LYMPH # 3.6 (1.2-3.4); LYMPH % 30.8 % (20.0-51.0); MEAN CELL VOLUME 79 fl (80.0-100.0); MEAN CORPUSCULAR HEMOGLOBIN 26 pg (27.0-31.0); MEAN CORPUSCULAR HGB CONC 33 g/dl (33.0-37.0); MEAN PLATELET VOLUME 9.9 fl (7.4-10.4); MONO # 0.7 (0.1-0.6); MONO % 5.7 % (1.7-9.3); PLATELET COUNT 237 K/mm3 (130-400); RED BLOOD COUNT 5.16 M/mm3 (4.10-5.30); REDCELL DISTRIBUTION WIDTH-CV 13.1 % (11.5-14.5)
[2019-04-26 17:40] LABS: ERYTHROCYTE SEDIMENTATION RATE 35 mm/hr (0-20)
[2019-04-26 18:11] VITALS: PULSE 102
== END 2019-04-26 18:15 | disposition home or self-care (01) ==
LOC: COL.ER 16:11
PROVIDERS: Physician Assistant
DX: M25.561 Pain in right knee (principal); F32.9 Major depressive disorder, single episode, unspecified; Z90.89 Acquired absence of other organs
CPT/HCPCS: J1885

== ENCOUNTER 2019-06-07 17:38 | Emergency (ER) | payer MEDICARE ==
[~2019-06-07] VITALS: Ht 170.2 cm; Wt 145.5 kg
[2019-06-07 17:55] VITALS: BP 138/101; TEMP 98
[2019-06-07] MEDS ORDERED: LASIX 20MG TABL20 MG PO (18:09)
[2019-06-07 19:05] LABS: BASO % 0.2 % (0.0-2.0); EOS # 0.1 (0.0-0.7); EOS % 0.9 % (0-4.0); GRAN # 8.2 (1.4-6.5); GRAN % 65.8 % (42.2-75.2); HEMATOCRIT 40.6 % (37.0-47.0); HEMOGLOBIN 13.5 g/dl (12.5-16.0); LYMPH # 3.3 (1.2-3.4); LYMPH % 26.3 % (20.0-51.0); MEAN CELL VOLUME 78 fl (80.0-100.0); MEAN CORPUSCULAR HEMOGLOBIN 26 pg (27.0-31.0); MEAN CORPUSCULAR HGB CONC 33 g/dl (33.0-37.0); MEAN PLATELET VOLUME 10.4 fl (7.4-10.4); MONO # 0.8 (0.1-0.6); MONO % 6.5 % (1.7-9.3); PLATELET COUNT 235 K/mm3 (130-400); RED BLOOD COUNT 5.21 M/mm3 (4.10-5.30)
[2019-06-07 19:30] LABS: ALBUMIN 4.5 gm/dL (3.5-5.0); BILIRUBIN,TOTAL 0.5 mg/dL (0.0-1.0); C-REACTIVE PROTEIN 3.1 mg/dL (0.0-0.9); CALCIUM 9.3 mg/dL (8.4-10.2); CREATININE, serum 0.63 (0.52-1.25); POTASSIUM 3.3 mmol/L (3.4-5.0)
[2019-06-07 20:00] VITALS: PULSE 105
== END 2019-06-07 20:00 | disposition home or self-care (01) ==
LOC: COL.ER 17:38
PROVIDERS: Nurse Practitioner
DX: M25.561 Pain in right knee (principal); I10 Essential (primary) hypertension; F32.9 Major depressive disorder, single episode, unspecified; Z87.891 Personal history of nicotine dependence

== ENCOUNTER → 2019-09-03 | Outpatient (CLI) | payer MEDICARE ==
[~2019-09-03] MED LIST changes: +LASIX 20MG TABL20 MG PO
== END ==
LOC: COL.RAD 11:27
DX: R19.7 Diarrhea, unspecified (principal); R10.31 Right lower quadrant pain
CPT/HCPCS: Q9967

== ENCOUNTER 2020-09-18 00:26 | Emergency (ER) | payer MEDICARE ==
[~2020-09-18] VITALS: Ht 170.2 cm; Wt 135.0 kg
[2020-09-18 01:49] VITALS: BP 147/81; PULSE 88; TEMP 98.4
[2020-10-30] MEDS ORDERED: BUSPAR DIVIDOSE15 MG PO (08:12)
[2020-10-30] MEDS ORDERED: BUSPAR 30MG30 MG/TAB PO (08:12)
[2020-10-30] MEDS ORDERED: DITROPAN 5MG TAB5 MG PO (08:18)
[2020-10-30] MEDS ORDERED: LIORESAL 1010 MG/TAB PO (08:19)
[2020-10-30] MEDS ORDERED: PRISTIQ 50 MG T50 MG PO (08:19)
[2020-10-30] MEDS ORDERED: REQUIP 0.5MG0.5 MG PO (08:20)
[2020-10-30] MEDS ORDERED: MORPHINE 1515 MG/TAB PO (08:21)
[2020-10-30] MEDS ORDERED: ATIVAN 0.50.5 MG/TAB PO (08:21)
[2020-10-30] MEDS ORDERED: FENTANYL 12MCG TD (08:22)
[2020-10-30] MEDS ORDERED: FENTANYL 25 MCG TD (08:23)
[2020-10-30] MEDS ORDERED: DEPO-PROVE150 MG/1 M IM (08:25)
== END 2020-09-18 01:49 | disposition home or self-care (01) ==
LOC: COL.ER 00:26
DX: S86.911A Strain of unspecified muscle(s) and tendon(s) at lower leg level, right leg, initial encounter (principal); G89.29 Other chronic pain; Z88.1 Allergy status to other antibiotic agents; Z88.2 Allergy status to sulfonamides; Z87.891 Personal history of nicotine dependence; W10.9XXA Fall (on) (from) unspecified stairs and steps, initial encounter
CPT/HCPCS: J1170; J2060

== ENCOUNTER → 2021-04-09 | Outpatient (CLI) | payer MEDICARE ==
[~2021-04-09] MED LIST changes: +BUSPAR 30MG30 MG/TAB PO; +BUSPAR DIVIDOSE15 MG PO; +DEPO-PROVE150 MG/1 M IM; +DITROPAN 5MG TAB5 MG PO; +FENTANYL 12MCG TD; +FENTANYL 25 MCG TD; +LIORESAL 1010 MG/TAB PO; +MORPHINE 1515 MG/TAB PO; +PRISTIQ 50 MG T50 MG PO; +REQUIP 0.5MG0.5 MG PO
== END ==
LOC: COL.RAD 09:11
DX: Z30.431 Encounter for routine checking of intrauterine contraceptive device (principal)

== ENCOUNTER 2021-10-20 12:56 | Outpatient (CLI) | payer MEDICARE ==
[~2021-10-20] VITALS: Ht 170.2 cm; Wt 140.0 kg
[~2021-10-20 12:56] MED LIST changes: -REQUIP 0.5MG0.5 MG PO; +REQUIP 1MG T1 MG/TAB PO
[2021-10-20 13:51] LABS: EOS # 0.1 K/mm3 (0.0-0.7); EOS % 1.4 % (0.0-4.0); GRAN # 4.2 K/mm3 (1.4-6.5); GRAN % 59.1 % (42.2-75.2); HEMATOCRIT 38.4 % (37.0-47.0); HEMOGLOBIN 12.5 g/dl (12.5-16.0); LYMPH # 2.5 K/mm3 (1.2-3.4); LYMPH % 34.4 % (20.0-51.0); MEAN CELL VOLUME 77 fl (80.0-100.0); MEAN CORPUSCULAR HEMOGLOBIN 25 pg (27-31); MEAN CORPUSCULAR HGB CONC 33 g/dl (33.0-37.0); MEAN PLATELET VOLUME 10.4 fl (7.4-10.4); MONO # 0.4 K/mm3 (0.1-0.6); PLATELET COUNT 151 K/mm3 (130-400); RED BLOOD COUNT 4.96 M/mm3 (4.10-5.30); REDCELL DISTRIBUTION WIDTH-CV 14.3 % (11.5-14.5)
[2021-10-20 14:00] VITALS: BP 110/63; BP 115/97; PULSE 55; PULSE 71; TEMP 98.5
[2021-10-20 14:05] LABS: ALBUMIN 3.8 gm/dL (3.5-5.0); BILIRUBIN,TOTAL 0.3 mg/dL (0.2-1.2); CREATININE, serum 0.72 mg/dL (0.57-1.11); POTASSIUM 4.1 mmol/L (3.5-4.5)
[2021-10-20 14:30] VITALS: BP 100/50; BP 118/65; PULSE 56; PULSE 73
[2021-10-20] MEDS ORDERED: NEURONTIN600 MG/TAB PO (14:48)
[2021-10-20] MEDS ORDERED: EPIPEN 2-PAK1 MG/ML IM (14:53)
[2021-10-20] MEDS ORDERED: CALCIUM-MAGNES1 EAC1 PO (14:53)
[2021-10-20] MEDS ORDERED: LYRICA 100MG C100 M1 PO (14:54)
[2021-10-20 15:00] VITALS: BP 117/70; PULSE 75
[2021-10-20 15:15] VITALS: BP 120/82; PULSE 70
== END 2021-10-20 16:33 ==
LOC: EUO 12:56 → EDSTATUS 13:00 → EUO 16:33
PROVIDERS: Family Medicine
DX: U07.1 COVID-19 (principal)
CPT/HCPCS: M0222; Q0222

== ENCOUNTER → 2021-11-30 | Outpatient (CLI) | payer MEDICARE ==
[~2021-11-30] VITALS: Ht 170.2 cm; Wt 137.0 kg
[~2021-11-30] MED LIST changes: +CALCIUM 600 MG1 EAC2 PO; +CALCIUM-MAGNES1 EAC1 PO; +COLACE 100100 MG/CAP PO; +EPIPEN 2-PAK1 MG/ML IM; +LYRICA 100MG C100 M1 PO; +NARCAN4 MG NS; +VITAMIND3 5000 PO
[2021-11-30 09:28] VITALS: BP 112/75; PULSE 86; TEMP 98.8
[2021-11-30 12:40] VITALS: BP 123/76; PULSE 85
== END ==
LOC: COL.RAD 10-22 07:30
DX: M47.814 Spondylosis without myelopathy or radiculopathy, thoracic region (principal); M51.36 Other intervertebral disc degeneration, lumbar region; M51.37 Other intervertebral disc degeneration, lumbosacral region; M17.11 Unilateral primary osteoarthritis, right knee
CPT/HCPCS: A9575; J2250; J2704; J3010; J7120

== ENCOUNTER 2022-01-05 06:32 | Day surgery (SDC) | payer MEDICARE ==
[~2022-01-05] VITALS: Ht 170.2 cm; Wt 134.5 kg
[2022-01-05] MEDS ORDERED: ATIVAN 0.50.5 MG/TAB PO (07:20)
--- NOTE | 2022-01-05 07:20 | NUR ---
Patient's med rec locked prior to reviewing medications with patient. Pharmacy notified and adviced to review med rec that was locked with patient to verify medications are correct. Verified medication list with patient and 1 additonal medication added to list. Patient fentanyl patches are on right chest, under breast. Scopolamine patch applied behind right ear, education regarding medication provided to patient. Patient verbalized understanding.
[2022-01-05 07:23] VITALS: BP 134/93; PULSE 83; TEMP 97.7
[2022-01-05 10:05] VITALS: BP 99/74; PULSE 89; TEMP 97.6
--- NOTE | 2022-01-05 10:05 | NUR ---
PT TO BAY 6 PER CART FROM PACU. PT TOLERATING WATER. DRESSING C/D/I. PT DENIES ANY NEEDS. CALL LIGHT WITHIN REACH.
[2022-01-05 10:20] VITALS: BP 117/81; PULSE 80
[2022-01-05 10:35] VITALS: BP 120/80; PULSE 83
--- NOTE | 2022-01-05 11:00 | NUR ---
1020-PT TOLERATING SODA AND MUFFIN. PT CONTINUES TO DENY ANY NEEDS. 1040-IV DC'D. 1045-DISCHARGE EDUCATION COMPLETED WITH PT. VERBALIZED UNDERSTANDING OF HOME AND FOLLOW UP CARE. ALL QUESTIONS ANSWERED. DISCHARGE PAPERWORK GIVEN TO PT. 1100-PT OFF UNIT PER WHEELCHAIR. PT DISCHARGED TO HOME WITH HER FATHER PER PERSONAL VEHICLE.
[2022-01-05 12:46] VITALS: BP 109/82; PULSE 85
== END 2022-01-05 11:00 | disposition home or self-care (01) ==
LOC: SDCO 06:32
DX: D48.1 Neoplasm of uncertain behavior of connective and other soft tissue (principal); M65.861 Other synovitis and tenosynovitis, right lower leg; M17.11 Unilateral primary osteoarthritis, right knee; M94.261 Chondromalacia, right knee; I10 Essential (primary) hypertension; K21.9 Gastro-esophageal reflux disease without esophagitis; Z87.891 Personal history of nicotine dependence
CPT/HCPCS: J0690; J1100; J1170; J1885; J2250; J2405; J2704; J2795; J3010; J7120

== ENCOUNTER 2022-07-01 18:33 | Emergency (ER) | payer MEDICARE, MEDICAID ==
[~2022-07-01] VITALS: Ht 170.2 cm; Wt 127.3 kg
[2022-07-01 18:49] VITALS: TEMP 98.5
[2022-07-01 20:27] VITALS: BP 116/78; PULSE 84
== END 2022-07-01 20:27 | disposition home or self-care (01) ==
LOC: COL.ER 18:33
DX: M54.50 Low back pain, unspecified (principal); Z98.890 Other specified postprocedural states
CPT/HCPCS: J3010

== ENCOUNTER → 2022-09-03 | Outpatient (CLI) | payer MEDICARE, MEDICAID ==
[~2022-09-03] MED LIST changes: +MIRAPEX0.25 MG PO; +ZOFRAN 4MG T4 MG/TAB PO
[2022-09-03 14:36] LABS: PROTHROMBIN TIME 11.7 SECONDS (9.7-12.8)
== END ==
LOC: COL.LAB 13:55
DX: D48.1 Neoplasm of uncertain behavior of connective and other soft tissue (principal); T45.1X5A Adverse effect of antineoplastic and immunosuppressive drugs, initial encounter

== ENCOUNTER → 2022-10-07 | Outpatient (CLI) | payer MEDICARE, MEDICAID ==
[2022-10-07 10:45] LABS: ALBUMIN 3.8 gm/dL (3.5-5.0); BILIRUBIN,TOTAL 0.4 mg/dL (0.2-1.2); CREATININE, serum 0.81 mg/dL (0.57-1.11); POTASSIUM 3.5 mmol/L (3.5-4.5); TOTAL PROTEIN 7.1 gm/dL (6.2-8.1)
[2022-10-07 10:48] LABS: INR 1.1 (0.8-3.0); PROTHROMBIN TIME 12.4 SECONDS (9.7-12.8)
== END ==
LOC: COL.LAB 09:35
PROVIDERS: Internal Medicine
DX: D48.1 Neoplasm of uncertain behavior of connective and other soft tissue (principal); T45.1X5A Adverse effect of antineoplastic and immunosuppressive drugs, initial encounter

== ENCOUNTER 2022-10-08 11:23 | Emergency (ER) | payer MEDICARE, MEDICAID ==
[~2022-10-08] VITALS: Ht 170.2 cm; Wt 129.5 kg
[2022-10-08 11:27] VITALS: TEMP 98.4
[2022-10-08 12:03] LABS: COLLECTION METHOD CLEAN CATCH
[2022-10-08 12:13] LABS: SQUAMOUS EPITHELIAL 0-2 /hpf (0-10); URINE BACTERIA None Seen /hpf (NONE SEEN); URINE RBC None Seen /hpf (0-2)
[2022-10-08 12:18] LABS: BASO % 0.2 % (0.0-2.0); EOS # 0.1 K/mm3 (0.0-0.7); EOS % 1.5 % (0.0-4.0); GRAN % 50.5 % (42.2-75.2); HEMOGLOBIN 11.4 g/dl (12.5-16.0); LYMPH # 2.6 K/mm3 (1.2-3.4); LYMPH % 43.1 % (20.0-51.0); MEAN CELL VOLUME 80 fl (80.0-100.0); MEAN CORPUSCULAR HEMOGLOBIN 27 pg (27-31); MEAN CORPUSCULAR HGB CONC 33 g/dl (33.0-37.0); MEAN PLATELET VOLUME 11.1 fl (7.4-10.4); MONO # 0.3 K/mm3 (0.1-0.6); MONO % 4.4 % (1.7-9.3); PLATELET COUNT 162 K/mm3 (130-400); RED BLOOD COUNT 4.31 M/mm3 (4.10-5.30); REDCELL DISTRIBUTION WIDTH-CV 14.3 % (11.5-14.5)
[2022-10-08 12:18] LABS: PH 5.5 (5-8); URINE APPEARANCE Clear (CLEAR/HAZY); URINE COLOR Yellow (YELLOW); URINE GLUCOSE Negative (NEGATIVE); URINE KETONE Negative (NEGATIVE); URINE PROTEIN(semi-quant) Negative (NEGATIVE)
[2022-10-08 12:19] LABS: URINE BLOOD Negative (NEGATIVE); URINE NITRATE Negative (NEGATIVE); URINE UROBILINOGEN 0.2 (NEGATIVE)
[2022-10-08 12:25] LABS: HEMATOCRIT 34.4 % (37.0-47.0)
[2022-10-08 12:41] LABS: ALBUMIN 3.8 gm/dL (3.5-5.0); BILIRUBIN,TOTAL 0.3 mg/dL (0.2-1.2); CALCIUM 9.2 mg/dL (8.4-10.2); CREATININE, serum 0.83 mg/dL (0.57-1.11); POTASSIUM 3.4 mmol/L (3.5-4.5); TOTAL PROTEIN 7.4 gm/dL (6.2-8.1)
[2022-10-08 13:18] VITALS: BP 141/82; PULSE 64
== END 2022-10-08 13:18 | disposition home or self-care (01) ==
LOC: COL.ER 11:23
PROVIDERS: Physician Assistant
DX: K59.00 Constipation, unspecified (principal); C76.51 Malignant neoplasm of right lower limb

== ENCOUNTER → 2022-10-22 | Outpatient (CLI) | payer MEDICARE, MEDICAID ==
[~2022-10-22] MED LIST changes: +FENTANYL 50MCG TD; +FENTANYL 75MCG TD; +LYLEQ0.35 MG PO; +MIRAPEX 1MG PO; +OXY IR5 MG PO; +[UNRECOGNIZED DRUG - OTHER] PO
[2022-10-22 10:09] LABS: BASO % 0.2 % (0.0-2.0); EOS # 0.1 K/mm3 (0.0-0.7); EOS % 1.5 % (0.0-4.0); GRAN # 3.7 K/mm3 (1.4-6.5); GRAN % 60.1 % (42.2-75.2); HEMOGLOBIN 11.4 g/dl (12.5-16.0); LYMPH # 1.9 K/mm3 (1.2-3.4); LYMPH % 31.1 % (20.0-51.0); MEAN CELL VOLUME 81 fl (80.0-100.0); MEAN CORPUSCULAR HEMOGLOBIN 27 pg (27-31); MEAN CORPUSCULAR HGB CONC 33 g/dl (33.0-37.0); MEAN PLATELET VOLUME 10.8 fl (7.4-10.4); MONO # 0.4 K/mm3 (0.1-0.6); MONO % 6.9 % (1.7-9.3); PLATELET COUNT 132 K/mm3 (130-400); REDCELL DISTRIBUTION WIDTH-CV 15.8 % (11.5-14.5)
[2022-10-22 10:10] LABS: HEMATOCRIT 34.7 % (37.0-47.0)
[2022-10-22 10:37] LABS: ALBUMIN 3.8 gm/dL (3.5-5.0); BILIRUBIN,TOTAL 0.4 mg/dL (0.2-1.2); CALCIUM 8.9 mg/dL (8.4-10.2); CREATININE, serum 0.8 mg/dL (0.57-1.11); POTASSIUM 3.5 mmol/L (3.5-4.5); TOTAL PROTEIN 6.9 gm/dL (6.2-8.1)
== END ==
LOC: COL.LAB 09:45
PROVIDERS: Internal Medicine
DX: D48.1 Neoplasm of uncertain behavior of connective and other soft tissue (principal); T45.1X5A Adverse effect of antineoplastic and immunosuppressive drugs, initial encounter

== ENCOUNTER → 2023-08-04 | Outpatient (CLI) | payer MEDICAID ==
[~2023-08-04] VITALS: Ht 170.2 cm; Wt 136.9 kg
[~2023-08-04] MED LIST changes: +Atropine 0.4 MG/ML 1 ML VIAL ONE; +Gadoterate 20 ML VIAL IV ONE; +Glycopyrrolate 0.2 MG/ML 1 ML VIAL ONE; +LR 1,000 ML IV SCH; +Lidocaine PF 2% (20 MG/ML) 5 ML VIAL ONE; +Midazolam 2 MG/2 ML VIAL ONE; +Phenylephrine 10 MG/ML VIAL ONE; +fentaNYL 50 MCG/ML 2 ML VIAL ONE
[2023-08-04 07:22] VITALS: BP 131/80; PULSE 75; TEMP 98.4
[2023-08-04 09:15] VITALS: BP 140/70; PULSE 90
[2023-08-04 09:25] VITALS: BP 133/85; PULSE 82
[2023-08-04 09:40] VITALS: BP 131/76; PULSE 95
== END ==
LOC: COL.RAD 07:00
DX: M17.11 Unilateral primary osteoarthritis, right knee (principal); M65.9 Synovitis and tenosynovitis, unspecified; D48.19 Other specified neoplasm of uncertain behavior of connective and other soft tissue
CPT/HCPCS: A9575; J0461; J2250; J2371; J2704; J3010; J7120

== ENCOUNTER → 2024-01-16 | Outpatient (CLI) | payer MEDICARE, MEDICAID ==
[~2024-01-16] VITALS: Ht 170.2 cm; Wt 120.2 kg
[~2024-01-16] MED LIST changes: -Atropine 0.4 MG/ML 1 ML VIAL ONE; -Glycopyrrolate 0.2 MG/ML 1 ML VIAL ONE; -Phenylephrine 10 MG/ML VIAL ONE; -fentaNYL 50 MCG/ML 2 ML VIAL ONE
[2024-01-16 07:37] VITALS: BP 144/80; PULSE 74; TEMP 97.6
[2024-01-16 09:20] VITALS: BP 104/60; PULSE 78
[2024-01-16 09:25] VITALS: BP 104/90; PULSE 66
[2024-01-16 09:40] VITALS: BP 96/63; PULSE 68
== END ==
LOC: COL.RAD 06:47
DX: M17.11 Unilateral primary osteoarthritis, right knee (principal); M94.261 Chondromalacia, right knee
CPT/HCPCS: A9575; J2250; J2704; J7120

== ENCOUNTER → 2024-02-02 | Outpatient (CLI) | payer MEDICARE, MEDICAID ==
[~2024-02-02] VITALS: Ht 170.2 cm; Wt 117.4 kg
[~2024-02-02] MED LIST changes: +fentaNYL 50 MCG/ML 2 ML VIAL ONE
[2024-02-02 10:00] VITALS: BP 122/78; PULSE 82; TEMP 97.9
[2024-02-02 10:50] VITALS: BP 104/70; PULSE 86
[2024-02-02 11:00] VITALS: BP 139/72; PULSE 72
--- NOTE | 2024-02-02 11:37 | NUR ---
PATIENT COMPLETED HER RECOVERY TIME. PATIENT IS AWAKE, ALERT, AND ORIENTED X4 AND IS NOT DROWSY AT ALL. PATIENT FINISHED HER SODA AND HER FIANCE IS AT HER SIDE. WRITTEN D/C INSTRUCTIONS GIVEN TO PATIENT AND REVIEWED AND PATIENT IS ABLE TO TEACH BACK. IV REMOVED WITHOUT ISSUE. ESCORTED PATIENT WITH ALL OF HER BELONGINGS TO THE PATIENT ENTRANCE WHERE HER RIDE WAS WAITING. PATIENT WAS ABLE TO GET INTO THE FRONT PASSENGER SEAT WITHOUT ANY ISSUES. ALL NEEDS MET.
== END ==
LOC: COL.RAD 09:15
DX: M47.26 Other spondylosis with radiculopathy, lumbar region (principal); M51.16 Intervertebral disc disorders with radiculopathy, lumbar region; Z98.890 Other specified postprocedural states
CPT/HCPCS: A9575; J2250; J2704; J3010; J7120

== ENCOUNTER → 2024-03-07 | Outpatient (CLI) | payer MEDICARE ==
[~2024-03-07] MED LIST changes: +ALDACTONE 25MG25 M1 PO; -CALCIUM 600 MG1 EAC2 PO; +CALCIUM 600 PLU1 TAB PO; +CELEBREX 200MG200 MG PO; +FENTANYL 100MCG TD; -Gadoterate 20 ML VIAL IV ONE; -LR 1,000 ML IV SCH; +LYRICA200 MG PO; -Lidocaine PF 2% (20 MG/ML) 5 ML VIAL ONE; -Midazolam 2 MG/2 ML VIAL ONE; +PRILOSEC 20MG20 MG PO; +RITALIN10 MG PO; -fentaNYL 50 MCG/ML 2 ML VIAL ONE
[2024-03-07 14:22] LABS: ALBUMIN 4.4 g/dL (3.5-5.0); BILIRUBIN,DIRECT 0.2 mg/dL (0.0-0.5); BILIRUBIN,TOTAL 0.4 mg/dL (0.2-1.2); CALCIUM 9.9 mg/dL (8.4-10.2); CREATININE, serum 0.77 mg/dL (0.57-1.11); POTASSIUM 3.3 mEq/L (3.5-4.5); TOTAL PROTEIN 7.8 g/dl (6.2-8.1)
== END ==
LOC: COL.LAB 12:41
PROVIDERS: Internal Medicine
DX: D48.19 Other specified neoplasm of uncertain behavior of connective and other soft tissue (principal)

== ENCOUNTER → 2024-04-06 | Outpatient (CLI) | payer MEDICARE, MEDICAID ==
[2024-04-06 10:13] LABS: ALBUMIN 3.9 g/dL (3.5-5.0); BILIRUBIN,DIRECT 0.2 mg/dL (0.0-0.5); BILIRUBIN,TOTAL 0.4 mg/dL (0.2-1.2); CALCIUM 9.1 mg/dL (8.4-10.2); CREATININE, serum 0.79 mg/dL (0.57-1.11); TOTAL PROTEIN 6.8 g/dl (6.2-8.1)
== END ==
LOC: COL.LAB 09:14
PROVIDERS: Internal Medicine
DX: D48.19 Other specified neoplasm of uncertain behavior of connective and other soft tissue (principal)

== ENCOUNTER → 2024-04-11 | Outpatient (CLI) | payer MEDICARE, MEDICAID | LOC: COL.RAD 10:24 | DX: N83.00 Follicular cyst of ovary, unspecified side (principal); R10.2 Pelvic and perineal pain ==